=== PATIENT | female | born 1965 | race Caucasian/White ===

== ENCOUNTER 2024-05-02 21:18 | Inpatient (IN) | payer SELFPAY ==
[2024-05-02] MEDS ORDERED: NS 0.9% w/ 20 MEQ KCL 1,000 ML ONE (22:08)
[2024-05-02] MEDS ORDERED: Potassium Chloride 20 MEQ TAB ONE (22:09)
[2024-05-02 22:26] LABS: #Basophils 0.05 10x3/uL (0.0-0.2); #Eosinophils 0.12 10x3/uL (0.0-0.5); #Monocytes 0.81 10x3/uL (0.0-1.1); #Neutrophils 7.01 10x3/uL (1.5-8.4); %Basophils 0.5 % (0.0-2.0); %Eosinophils 1.1 % (0.0-6.0); %Lymphocytes 26.5 % (18.0-47.0); %Monocytes 7.4 % (0.0-10.0); %Neutrophils 64.1 % (40.0-75.0); Hematocrit 39.1 % (34.9-44.5); Hemoglobin 13.2 g/dL (12.0-15.5); Mean Corpuscular HGB CONC 33.8 g/dL (32.0-36.0); Mean Corpuscular Hemoglobin 30.3 pg (27.0-33.0); Mean Corpuscular Volume 89.7 fL (81.6-98.3); Mean Platelet Volume 10.7 fL (7.4-10.4); Platelet Count 395 10x3/uL (150-450); RBC Distribution Width 15.1 % (11.5-14.5); Red Blood Cell (RBC) Count 4.36 10x6/uL (3.90-5.03); White Blood Cell (WBC) Count 10.9 10x3/uL (3.5-10.5)
[2024-05-02 22:42] LABS: ALT (SGPT) 38 U/L (8-55); AST (SGOT) 50 U/L (5-34); Albumin 3.1 g/dL (3.5-5.0); Alkaline Phosphatase 65 U/L (40-110); Anion Gap 23 mmol/L (10-20); BUN (Urea Nitrogen) 20 mg/dL (9.8-20.1); Bilirubin, Total 0.4 mg/dL (0.2-1.2); Calc. Creatinine Clearance 0 mL/min (70-130); Calcium 9.8 mg/dL (7.8-10.44); Carbon Dioxide 26 mmol/L (22-29); Chloride 95 mmol/L (98-107); Estimated GFR 78; Globulin 2.9 g/dL (2.4-3.5); Glucose 129 mg/dL (70-105); Magnesium 1.8 mg/dL (1.6-2.6); Sodium 142 mmol/L (136-145)
[2024-05-02] MEDS ORDERED: Senokot S 8.6-50 MG TAB PO PRN (22:44)
[2024-05-02] MEDS ORDERED: Calcium Carbonate 500 MG ChewTAB PO PRN (22:44)
[2024-05-02 22:49] LABS: Phosphorus 2.1 mg/dL (2.3-4.7)
[2024-05-02] MEDS ORDERED: Magnesium 2 GM/50 ML BAG (IN WATER) ONE (23:03)
[2024-05-02 23:15] LABS: Critical Call Chemistry NUR.AEB@2313; Potassium 2.2 mmol/L (3.5-5.1)
[2024-05-03 00:17] VITALS: BMI 26.2
[2024-05-03] MEDS: Sodium Chloride 0.9% 1,000 ML IV SCH ×3 (00:42→05:40)
[2024-05-03] MEDS: Potassium Phosphate 30 MMOL, Admixture Fee 1 EACH in Sodium Chloride 0.9% 250 ML 250 ML IVPB SCH (01:04)
[2024-05-03 01:27] LABS: Bilirubin Neg (Negative); Blood, Urine Negative (Negative); Clarity Clear (Clear); Glucose, Urine (Dipstick) Normal (Negative); Ketone, Urine 15 mg/dL (Negative); Leukocyte 500 (Negative); Nitrite Negative (Negative); Protein, Urine (Dipstick) 15 mg/dl (Neg-Trace); Urobilinogen Normal mg/dL (Less than 2); pH, Urine 6.5 (5.0-9.0)
[2024-05-03] MEDS: QUEtiapine 100 MG TAB PO SCH ×2 (01:38→20:33)
[2024-05-03] MEDS: Sertraline 100 MG TAB PO SCH (01:38)
[2024-05-03] MEDS: Atorvastatin Calcium 10 MG TAB PO SCH (01:39)
[2024-05-03 02:04] LABS: Bacteria/HPF 2+ HPF (None Seen); CAUTI Indications for Culture Alt mental st,lethar; RBC/HPF 0-3 HPF (0-3); Squamous Epithelial 0-3 HPF (0-3)
[2024-05-03 02:06] LABS: Urine Culture Reflex No No
[2024-05-03] MEDS: Acetaminophen 325 MG TAB PO PRN (02:16)
[2024-05-03] MEDS: Ondansetron PF 4 MG/2 ML Vial IVP PRN (02:16)
[2024-05-03 06:27] LABS: #Basophils 0.02 10x3/uL (0.0-0.2); #Eosinophils 0.16 10x3/uL (0.0-0.5); #Monocytes 0.65 10x3/uL (0.0-1.1); #Neutrophils 2.88 10x3/uL (1.5-8.4); %Basophils 0.3 % (0.0-2.0); %Eosinophils 2.3 % (0.0-6.0); %Lymphocytes 46.6 % (18.0-47.0); %Monocytes 9.3 % (0.0-10.0); %Neutrophils 41.4 % (40.0-75.0); Hematocrit 30.9 % (34.9-44.5); Hemoglobin 10.3 g/dL (12.0-15.5); Mean Corpuscular HGB CONC 33.3 g/dL (32.0-36.0); Mean Corpuscular Hemoglobin 30.5 pg (27.0-33.0); Mean Corpuscular Volume 91.4 fL (81.6-98.3); Mean Platelet Volume 10.2 fL (7.4-10.4); Platelet Count 273 10x3/uL (150-450); RBC Distribution Width 15.6 % (11.5-14.5); Red Blood Cell (RBC) Count 3.38 10x6/uL (3.90-5.03)
[2024-05-03 06:36] LABS: ALT (SGPT) 23 U/L (8-55); AST (SGOT) 34 U/L (5-34); Albumin 2.1 g/dL (3.5-5.0); Alkaline Phosphatase 45 U/L (40-110); Anion Gap 17 mmol/L (10-20); BUN (Urea Nitrogen) 15 mg/dL (9.8-20.1); Bilirubin, Total 0.2 mg/dL (0.2-1.2); CK (CPK) 436 U/L (29-168); Calc. Creatinine Clearance 120 mL/min (70-130); Calcium 7.9 mg/dL (7.8-10.44); Carbon Dioxide 26 mmol/L (22-29); Chloride 104 mmol/L (98-107); Critical Call Chemistry NUR.ZNA@0635; Estimated GFR 102; Globulin 2.5 g/dL (2.4-3.5); Glucose 94 mg/dL (70-105); Magnesium 2.1 mg/dL (1.6-2.6); Phosphorus 4.7 mg/dL (2.3-4.7); Potassium 2.2 mmol/L (3.5-5.1); Protein, Total 4.6 g/dL (6.0-8.3); Sodium 145 mmol/L (136-145)
[2024-05-03] MEDS: Potassium Chloride 20 MEQ TAB PO SCH ×2 (07:10→14:56)
[2024-05-03] MEDS: Midodrine HCl 5 MG TAB PO SCH (07:10)
[2024-05-03] MEDS: LevoFLOXacin 750 mg/D5W 750 MG in Premix 1 BAG IVPB SCH (07:10)
[2024-05-03 07:31] LABS: Hematocrit 29.3 % (34.9-44.5); Hemoglobin 9.9 g/dL (12.0-15.5)
[2024-05-03] MEDS: Enoxaparin 40 MG (0.4 mL) SYRINGE SC SCH (08:00)
[2024-05-03] MEDS ORDERED: Sertraline 100 MG TAB PO SCH (09:00)
[2024-05-03 10:31] VITALS: BMI 28.2
[2024-05-03] MEDS ORDERED: Ondansetron ODT 4 MG TAB PO PRN (12:28)
[2024-05-03 13:41] LABS: Hematocrit 33.4 % (34.9-44.5); Hemoglobin 11.2 g/dL (12.0-15.5)
[2024-05-03 13:45] LABS: Critical Call Chemistry NUR.SL11@1341; Potassium 2.6 mmol/L (3.5-5.1)
[2024-05-03] MEDS ORDERED: Albumin 25% 25 GM (100 mL) BOT IVPB SCH ×2 (14:30→18:00)
[2024-05-03] MEDS: Albumin 25% 100 ML IVPB SCH (14:56)
[2024-05-03] MEDS: Methocarbamol 500 MG TAB PO SCH (20:33)
[2024-05-04 04:36] LABS: Anion Gap 12 mmol/L (10-20); BUN (Urea Nitrogen) 7 mg/dL (9.8-20.1); Calc. Creatinine Clearance 138 mL/min (70-130); Calcium 8.3 mg/dL (7.8-10.44); Carbon Dioxide 24 mmol/L (22-29); Chloride 114 mmol/L (98-107); Estimated GFR 106; Glucose 108 mg/dL (70-105); Sodium 147 mmol/L (136-145)
[2024-05-04 04:40] LABS: #Basophils 0.02 10x3/uL (0.0-0.2); #Eosinophils 0.11 10x3/uL (0.0-0.5); #Monocytes 0.41 10x3/uL (0.0-1.1); #Neutrophils 1.66 10x3/uL (1.5-8.4); %Basophils 0.4 % (0.0-2.0); %Eosinophils 2.4 % (0.0-6.0); %Lymphocytes 52.6 % (18.0-47.0); %Monocytes 8.8 % (0.0-10.0); %Neutrophils 35.6 % (40.0-75.0); Hematocrit 26.6 % (34.9-44.5); Hemoglobin 9.1 g/dL (12.0-15.5); Mean Corpuscular HGB CONC 34.2 g/dL (32.0-36.0); Mean Corpuscular Hemoglobin 31.8 pg (27.0-33.0); Mean Platelet Volume 10.5 fL (7.4-10.4); Platelet Count 265 10x3/uL (150-450); RBC Distribution Width 15.9 % (11.5-14.5); Red Blood Cell (RBC) Count 2.86 10x6/uL (3.90-5.03); White Blood Cell (WBC) Count 4.7 10x3/uL (3.5-10.5)
[2024-05-04] MEDS: guaiFENesin ER 600 MG TAB PO SCH (08:58)
[2024-05-04 13:50] LABS: Anion Gap 12 mmol/L (10-20); BUN (Urea Nitrogen) 5 mg/dL (9.8-20.1); Calc. Creatinine Clearance 127 mL/min (70-130); Calcium 9.2 mg/dL (7.8-10.44); Carbon Dioxide 26 mmol/L (22-29); Chloride 111 mmol/L (98-107); Estimated GFR 103; Glucose 111 mg/dL (70-105); Potassium 3.3 mmol/L (3.5-5.1); Sodium 146 mmol/L (136-145)
[2024-05-04] MEDS: Atorvastatin Calcium 10 MG TAB PO SCH (21:16)
[2024-05-04] MEDS: QUEtiapine 100 MG TAB PO SCH (22:23)
[2024-05-05 03:54] LABS: Hematocrit 29.7 % (34.9-44.5); Hemoglobin 9.6 g/dL (12.0-15.5)
[2024-05-05 04:09] LABS: Anion Gap 11 mmol/L (10-20); BUN (Urea Nitrogen) 4 mg/dL (9.8-20.1); Calc. Creatinine Clearance 138 mL/min (70-130); Calcium 8.9 mg/dL (7.8-10.44); Carbon Dioxide 24 mmol/L (22-29); Chloride 114 mmol/L (98-107); Estimated GFR 106; Glucose 120 mg/dL (70-105); Magnesium 1.8 mg/dL (1.6-2.6); Potassium 3.7 mmol/L (3.5-5.1); Sodium 145 mmol/L (136-145)
[2024-05-05 08:27] VITALS: BP 89/55; TEMP 98.2
[2024-05-05] MEDS ORDERED: QUEtiapine 100 MG TAB PO SCH (21:00)
== END 2024-05-05 10:51 | disposition home or self-care (01) | DRG 641 ==
LOC: CSHERS 21:18 → SUATTDRO 21:18 → CSHTELE 22:40 → OBSVTOIN 05-03 16:57
PROVIDERS: ADMIT Internal Medicine; ATTEND Internal Medicine
DX: E87.6 Hypokalemia (principal); N39.0 Urinary tract infection, site not specified; E86.0 Dehydration; I95.9 Hypotension, unspecified; E78.00 Pure hypercholesterolemia, unspecified; F41.9 Anxiety disorder, unspecified; E78.5 Hyperlipidemia, unspecified; F32.A Depression, unspecified; I11.0 Hypertensive heart disease with heart failure; I50.9 Heart failure, unspecified
CPT/HCPCS: 36415; 36416; 72146; 72148; 80048; 80053; 81001; 82550; 83605; 83735; 83880; 84100; 84145; 84443; 85014; 85018; 85025; 87086; 93005; 93010; 93306; 94760; 94762; 96372; 96374; 96375; 96376; G0378; J1650; J1956; J2405; J3475; J3480; J7030; J7050; P9047